=== PATIENT | female | born 1945 | race Caucasian/White ===

== ENCOUNTER → 2017-11-23 10:15 | Outpatient (CLI) | payer MEDICARE ==
[2015-11-02 12:38] VITALS: BMI 35.4
[~2017-11-23 10:15] MED LIST: ANTIVERT25 MG PO; ASPIRIN EC81 M1 PO; ASPIRIN325 MG PO; ATIVAN0.5 MG PO; ATIVAN1 MG PO; BOUDREAUXS113 GM TP; BUMETANIDE0.5 MG; BUMEX 1 MG TAB1 MG PO; CORDARONE200 MG PO; CYMBALTA20 MG PO; CYMBALTA30 MG PO; CYMBALTA60 MG PO; GLIPIZIDE10 MG PO; GLUCOPHAGE1000 MG PO; GLUCOPHAGE500 MG PO; HUMALOG 30100 UNITS/ SC; HYDROCHLOROTH12.5 M1; HYDROCODON-ACE1 EAC7 PO; JANUMET 50-5001 TAB PO; JANUMET XR 50-1 EAC1 PO; LANTUS SOL100 UNIT/1 SQ; LEVAQUIN500 MG PO; LEVOTHROID75 MCG PO; LISINOPRIL10 MG PO; LOPRESSOR25 MG PO; NEURONTIN 300300 MG PO; NORCO 10/325 TA1 TA1 PO; NORCO 5/325 TAB1 TA1 PO; NOVOLOG MIX 70/10 ML; NYSTATIN ORAL SU5 ML PO; PERCOCET 10/3251 TA1 PO; PRAVACHOL20 MG PO; RESTORIL22.5 MG PO; SYNTHROID137 MCG PO; TIROSINT13 MCG; TOPROL XL25 MG PO; TRAZODONE HCL150 MG PO; ZIAC 5/6.25 MG1 TAB PO
== END | disposition home or self-care (01) ==
LOC: D.MRI 10:15
DX: M54.16 Radiculopathy, lumbar region (principal)

== ENCOUNTER 2018-01-01 14:14 | Emergency (ER) | payer MEDICARE ==
[2015-11-02 12:38] VITALS: BMI 35.4
== END 2018-01-01 18:13 | disposition home or self-care (01) ==
LOC: D.ER 14:14
DX: S70.02XA Contusion of left hip, initial encounter (principal); W19.XXXA Unspecified fall, initial encounter; Y93.89 Activity, other specified; Y92.019 Unspecified place in single-family (private) house as the place of occurrence of the external cause; M25.552 Pain in left hip

== ENCOUNTER 2018-04-04 22:50 | Emergency (ER) | payer MEDICARE ==
[2015-11-02 12:38] VITALS: BMI 35.4
[2018-04-04 23:24] LABS: HEMATOCRIT 41.5 % (36.0-48.0); HEMOGLOBIN 14.3 g/dL (12-16); LYMPHOCYTES 27.3 % (15-50); MCH 32.5 pg (26.0-34.0); MCHC 34.5 g/dL (31.0-37.0); MCV 94.3 fL (80.0-100.0); MEAN PLATELET VOLUME 9.1 fL (7.4-10.4); PLATELET COUNT 178 10x3/uL (130-400); RDW 13.3 % (11.5-14.5); WBC 9.9 10x3/uL (4.8-10.8)
[2018-04-04 23:37] LABS: ALKALINE PHOSPHATASE 70 U/L (46-116); ALT (SGPT) 28 U/L (10-68); BILIRUBIN - TOTAL 0.75 mg/dL (0.2-1.3); CALC OSMOLALITY 286 mosm/kg (275-300); CARBON DIOXIDE 28.6 mmol/L (21.0-32.0); CHLORIDE - SERUM 102 mmol/L (98-107); POTASSIUM - SERUM 3.5 mmol/L (3.5-5.1); PROTEIN - SERUM 6.8 g/dL (6.4-8.2); SODIUM 140 mmol/L (136-145); UREA NITROGEN 18 mg/dL (7-18); eGFR NON AFRICAN AMERICAN 58 mL/min (90-120)
[2018-04-04 23:40] LABS: GLUCOSE 211 mg/dL (74-106)
[2018-04-04 23:41] LABS: KETONE - SERUM SMALL mg/dL (NEGATIVE)
[2018-04-05 01:05] LABS: APPEARANCE HAZY (CLEAR); BILIRUBIN NEGATIVE (NEGATIVE); COLOR YELLOW (YELLOW); GLUCOSE NEGATIVE (NEGATIVE); KETONE NEGATIVE (NEGATIVE); NITRITE NEGATIVE (NEGATIVE); PROTEIN NEGATIVE (NEGATIVE); SPECIFIC GRAVITY 1.015 (1.005-1.020)
[2018-04-05 01:07] LABS: BACTERIA MODERATE /hpf (NONE SEEN); EPITHELIAL CELLS 0-5 /hpf (0-5); RED CELLS - URINE 0-5 /hpf (0-5); WHITE CELLS - URINE 0-5 /hpf (0-5)
== END 2018-04-05 01:39 | disposition home or self-care (01) ==
LOC: D.ER 22:50
PROVIDERS: Family Medicine
DX: E11.65 Type 2 diabetes mellitus with hyperglycemia (principal); N39.0 Urinary tract infection, site not specified

== ENCOUNTER → 2018-04-27 06:27 | Outpatient (CLI) | payer MEDICARE ==
[2015-11-02 12:38] VITALS: BMI 35.4
[~2018-04-27 06:27] MED LIST changes: +BUTALB-APAP-CA1 EACH PO; +FLORAJEN3 CAPS460 MG PO; +HYDROCODONE-APA1 TAB PO; +LEVAQUIN750 MG PO; +NYSTATIN15 GM
== END | disposition home or self-care (01) ==
LOC: D.MAMMO 03-13 15:00
DX: Z12.31 Encounter for screening mammogram for malignant neoplasm of breast (principal)

== ENCOUNTER 2018-05-03 09:42 | Observation (INO) | payer MEDICARE ==
[~2018-05-03] VITALS: Ht 160 cm; Wt 88.0 kg
[~2018-05-03 09:42] MED LIST changes: -BUTALB-APAP-CA1 EACH PO; -FLORAJEN3 CAPS460 MG PO; -HYDROCODONE-APA1 TAB PO; -LEVAQUIN750 MG PO; -NYSTATIN15 GM
[2018-05-03 10:15] LABS: BASOPHILS 0.4 % (0-2); HEMATOCRIT 47.2 % (36.0-48.0); HEMOGLOBIN 16.1 g/dL (12-16); IMMATURE GRANULOCYTES 0.2 % (0-5); LYMPHOCYTES 21.7 % (15-50); MCH 33.3 pg (26.0-34.0); MCHC 34.1 g/dL (31.0-37.0); MCV 97.5 fL (80.0-100.0); MEAN PLATELET VOLUME 10.5 fL (7.4-10.4); NEUTROPHILS 67.7 % (40-80); PLATELET COUNT 186 10x3/uL (130-400); RBC 4.84 10x6/uL (4.00-5.40); RDW 13.1 % (11.5-14.5); WBC 9.2 10x3/uL (4.8-10.8)
[2018-05-03 10:37] LABS: ALBUMIN 3.2 g/dL (3.4-5.0); ALKALINE PHOSPHATASE 85 U/L (46-116); ALT (SGPT) 27 U/L (10-68); CALC OSMOLALITY 286 mosm/kg (275-300); CALCIUM 9.9 mg/dL (8.5-10.1); CARBON DIOXIDE 28.9 mmol/L (21.0-32.0); CHLORIDE - SERUM 99 mmol/L (98-107); POTASSIUM - SERUM 4.3 mmol/L (3.5-5.1); PROTEIN - SERUM 7.8 g/dL (6.4-8.2); SODIUM 137 mmol/L (136-145); UREA NITROGEN 18 mg/dL (7-18); eGFR NON AFRICAN AMERICAN 58 mL/min (90-120)
[2018-05-03 10:42] LABS: GLUCOSE 289 mg/dL (74-106)
[2018-05-03 10:51] LABS: CKMB 1.3 U/L (0.0-3.6); CREATINE KINASE 57 UL (21-215); TROPONIN-I < 0.017 ng/mL (0.000-0.060)
[2018-05-03 11:30] LABS: APPEARANCE CLEAR (CLEAR); COLOR DK YELLOW (YELLOW)
[2018-05-03 11:31] LABS: BACTERIA FEW /hpf (NONE SEEN); BILIRUBIN NEGATIVE (NEGATIVE); EPITHELIAL CELLS 0-5 /hpf (0-5); GLUCOSE 100 mg/dL (NEGATIVE); GRANULAR CAST RARE /lpf (NONE SEEN); HYALINE CAST OCC /lpf (NONE SEEN); KETONE MODERATE mg/dL (NEGATIVE); MUCUS <1+ /lpf (NONE SEEN); NITRITE NEGATIVE (NEGATIVE); PROTEIN TRACE mg/dL (NEGATIVE); RED CELLS - URINE 0-5 /hpf (0-5); UROBILINOGEN NORMAL (NORMAL); WHITE CELLS - URINE RARE /hpf (0-5)
[2018-05-03] MEDS ORDERED: NYSTATIN15 GM (16:43)
[2018-05-03 16:51] VITALS: BP 143/77; Ht 160 cm; Wt 88.0 kg
[2018-05-03] MEDS ORDERED: HYDROCODONE-APA1 TAB PO (17:10)
[2018-05-03 17:27] VITALS: BP 143/77
[2018-05-03 20:38] VITALS: BP 145/75
[2018-05-04 00:36] VITALS: BP 103/44
[2018-05-04 05:31] VITALS: BP 116/61
[2018-05-04 07:00] VITALS: BP 118/70
[2018-05-04 12:31] VITALS: BP 90/57
[2018-05-04 13:23] LABS: BASOPHILS 0.4 % (0-2); EOSINOPHILS 1.1 % (0-7); HEMATOCRIT 44.2 % (36.0-48.0); HEMOGLOBIN 15.3 g/dL (12-16); IMMATURE GRANULOCYTES 0.3 % (0-5); MCH 33.6 pg (26.0-34.0); MCHC 34.6 g/dL (31.0-37.0); MCV 97.1 fL (80.0-100.0); MEAN PLATELET VOLUME 10.2 fL (7.4-10.4); MONOCYTES 10.9 % (2-11); NEUTROPHILS 58.3 % (40-80); PLATELET COUNT 198 10x3/uL (130-400); RBC 4.55 10x6/uL (4.00-5.40); RDW 13.4 % (11.5-14.5)
[2018-05-04 13:33] LABS: ANION GAP 15.6 mmol/L (8-16); CALCIUM 8.9 mg/dL (8.5-10.1); CARBON DIOXIDE 25.6 mmol/L (21.0-32.0); CREATININE - SERUM 1.4 mg/dL (0.6-1.3); POTASSIUM - SERUM 4.2 mmol/L (3.5-5.1)
[2018-05-04 20:07] VITALS: BP 103/54
[2018-05-05 00:34] VITALS: BP 116/66
[2018-05-05 05:19] VITALS: BP 150/71
[2018-05-05 05:55] LABS: BASOPHILS 0.6 % (0-2); EOSINOPHILS 2.4 % (0-7); HEMATOCRIT 43.4 % (36.0-48.0); HEMOGLOBIN 14.8 g/dL (12-16); IMMATURE GRANULOCYTES 0.3 % (0-5); LYMPHOCYTES 34.8 % (15-50); MCH 33.2 pg (26.0-34.0); MCHC 34.1 g/dL (31.0-37.0); MCV 97.3 fL (80.0-100.0); MEAN PLATELET VOLUME 10.5 fL (7.4-10.4); MONOCYTES 12.1 % (2-11); NEUTROPHILS 49.8 % (40-80); PLATELET COUNT 159 10x3/uL (130-400); RBC 4.46 10x6/uL (4.00-5.40); RDW 13.2 % (11.5-14.5); WBC 10.9 10x3/uL (4.8-10.8)
[2018-05-05 06:13] LABS: ANION GAP 12.2 mmol/L (8-16); CALCIUM 9.1 mg/dL (8.5-10.1); CARBON DIOXIDE 28.5 mmol/L (21.0-32.0); POTASSIUM - SERUM 3.7 mmol/L (3.5-5.1)
[2018-05-05 08:18] VITALS: BP 106/47
[2018-05-05 12:01] VITALS: BP 124/61
== END 2018-05-05 15:36 | disposition home or self-care (01) ==
LOC: D.ER 09:42 → OBSVTIME 13:59 → D.M2 13:59 → D.EDHOLD 13:59 → D.M2 15:06
PROVIDERS: Emergency Medicine; Family Medicine
DX: N39.0 Urinary tract infection, site not specified (principal); E11.9 Type 2 diabetes mellitus without complications; I10 Essential (primary) hypertension; I48.91 Unspecified atrial fibrillation; I25.2 Old myocardial infarction; F32.9 Major depressive disorder, single episode, unspecified; F41.9 Anxiety disorder, unspecified; G47.33 Obstructive sleep apnea (adult) (pediatric); Z86.73 Personal history of transient ischemic attack (TIA), and cerebral infarction without residual deficits

== ENCOUNTER 2018-06-10 22:24 | Inpatient (IN) | payer MEDICARE ==
[~2018-06-10] VITALS: Ht 160 cm; Wt 94.4 kg
[~2018-06-10 22:24] MED LIST changes: +HYDROCODONE-APA1 TAB PO; +NYSTATIN15 GM
[2018-06-10 22:48] LABS: BASOPHILS 0.2 % (0-2); EOSINOPHILS 0.8 % (0-7); HEMATOCRIT 40.9 % (36.0-48.0); HEMOGLOBIN 13.9 g/dL (12-16); IMMATURE GRANULOCYTES 0.2 % (0-5); MCH 33.6 pg (26.0-34.0); MCV 98.8 fL (80.0-100.0); MONOCYTES 0.6 % (2-11); NEUTROPHILS 83.2 % (40-80); PLATELET COUNT 130 10x3/uL (130-400); RBC 4.14 10x6/uL (4.00-5.40); RDW 12.6 % (11.5-14.5); WBC 4.8 10x3/uL (4.8-10.8)
[2018-06-10 22:58] LABS: ALBUMIN 2.9 g/dL (3.4-5.0); ANION GAP 14.8 mmol/L (8-16); BILIRUBIN - TOTAL 0.5 mg/dL (0.2-1.3); CARBON DIOXIDE 30.1 mmol/L (21.0-32.0); CREATININE - SERUM 1.1 mg/dL (0.6-1.3); POTASSIUM - SERUM 3.9 mmol/L (3.5-5.1); PROTEIN - SERUM 7.4 g/dL (6.4-8.2)
[2018-06-10 23:37] LABS: APPEARANCE HAZY (CLEAR); BILIRUBIN NEGATIVE (NEGATIVE); COLOR YELLOW (YELLOW); GLUCOSE 500 mg/dL (NEGATIVE); KETONE NEGATIVE (NEGATIVE); NITRITE POSITIVE (NEGATIVE); PH 5.5 (5.0-6.0); PROTEIN 1+ mg/dL (NEGATIVE); SPECIFIC GRAVITY 1.015 (1.005-1.020); UROBILINOGEN NORMAL (NORMAL)
[2018-06-10 23:40] LABS: EPITHELIAL CELLS 0-5 /hpf (0-5); WHITE CELLS - URINE 25-50 /hpf (0-5)
[2018-06-10 23:41] LABS: BACTERIA MANY /hpf (NONE SEEN); HYALINE CAST RARE /lpf (NONE SEEN)
[2018-06-10 23:57] VITALS: BP 115/52
[2018-06-11 01:05] VITALS: BP 116/55
[2018-06-11 05:15] VITALS: BP 106/69
[2018-06-11 08:42] VITALS: BP 103/54
[2018-06-11 13:54] VITALS: Ht 160 cm; Wt 94.4 kg
[2018-06-11 16:52] VITALS: BP 115/54
[2018-06-11 20:48] VITALS: BP 102/53
[2018-06-12 06:57] VITALS: BP 151/71
[2018-06-12 09:11] LABS: BASOPHILS 0.2 % (0-2); EOSINOPHILS 1.2 % (0-7); HEMATOCRIT 34.8 % (36.0-48.0); HEMOGLOBIN 11.8 g/dL (12-16); IMMATURE GRANULOCYTES 0.3 % (0-5); LYMPHOCYTES 8.4 % (15-50); MCH 33.1 pg (26.0-34.0); MCHC 33.9 g/dL (31.0-37.0); MCV 97.5 fL (80.0-100.0); MEAN PLATELET VOLUME 10.3 fL (7.4-10.4); MONOCYTES 8.9 % (2-11); PLATELET COUNT 101 10x3/uL (130-400); RBC 3.57 10x6/uL (4.00-5.40); RDW 12.4 % (11.5-14.5); WBC 12.2 10x3/uL (4.8-10.8)
[2018-06-12 09:18] VITALS: BP 159/81
[2018-06-12 09:29] LABS: ANION GAP 7.8 mmol/L (8-16); BILIRUBIN - TOTAL 0.36 mg/dL (0.2-1.3); CALCIUM 8.5 mg/dL (8.5-10.1); CARBON DIOXIDE 31.2 mmol/L (21.0-32.0); CREATININE - SERUM 0.9 mg/dL (0.6-1.3)
[2018-06-12 09:31] LABS: ALBUMIN 2.1 g/dL (3.4-5.0)
[2018-06-12 12:39] VITALS: BP 159/81
[2018-06-12 15:05] LABS: APPEARANCE - CSF CLEAR; RBC - CSF 0 cmm (0-0)
[2018-06-12 15:06] LABS: GLUCOSE - CSF 112 MG/DL (40-75); PROTEIN - CSF 41 MG/DL (12-60)
[2018-06-12 16:34] VITALS: BP 164/81
[2018-06-12 21:08] VITALS: BP 133/72
[2018-06-13 01:40] VITALS: BP 126/68
[2018-06-13 05:40] VITALS: BP 159/86
[2018-06-13 07:08] LABS: BASOPHILS 0.2 % (0-2); EOSINOPHILS 1.3 % (0-7); HEMATOCRIT 35.9 % (36.0-48.0); HEMOGLOBIN 12.1 g/dL (12-16); IMMATURE GRANULOCYTES 0.6 % (0-5); LYMPHOCYTES 11.6 % (15-50); MCH 32.8 pg (26.0-34.0); MCHC 33.7 g/dL (31.0-37.0); MCV 97.3 fL (80.0-100.0); MEAN PLATELET VOLUME 10.6 fL (7.4-10.4); MONOCYTES 9.2 % (2-11); NEUTROPHILS 77.1 % (40-80); PLATELET COUNT 119 10x3/uL (130-400); RBC 3.69 10x6/uL (4.00-5.40); RDW 12.5 % (11.5-14.5); WBC 10.8 10x3/uL (4.8-10.8)
[2018-06-13 07:50] LABS: ALBUMIN 2.1 g/dL (3.4-5.0); ALKALINE PHOSPHATASE 98 U/L (46-116); ALT (SGPT) 20 U/L (10-68); BILIRUBIN - TOTAL 0.28 mg/dL (0.2-1.3); CALC OSMOLALITY 277 mosm/kg (275-300); CALCIUM 8.6 mg/dL (8.5-10.1); CARBON DIOXIDE 29.8 mmol/L (21.0-32.0); CHLORIDE - SERUM 101 mmol/L (98-107); CREATININE - SERUM 0.7 mg/dL (0.6-1.3); GLUCOSE 204 mg/dL (74-106); POTASSIUM - SERUM 4.4 mmol/L (3.5-5.1); PROTEIN - SERUM 6.3 g/dL (6.4-8.2); SODIUM 136 mmol/L (136-145); UREA NITROGEN 13 mg/dL (7-18); eGFR NON AFRICAN AMERICAN 87 mL/min (90-120)
[2018-06-13 09:38] VITALS: BP 133/79
[2018-06-13 12:00] VITALS: BP 150/78
[2018-06-13 17:35] VITALS: BP 137/77
[2018-06-13 20:36] VITALS: BP 137/73
[2018-06-14 00:51] VITALS: BP 126/73
[2018-06-14 06:03] LABS: BASOPHILS 0.3 % (0-2); EOSINOPHILS 2.2 % (0-7); HEMATOCRIT 35.3 % (36.0-48.0); HEMOGLOBIN 11.9 g/dL (12-16); IMMATURE GRANULOCYTES 0.8 % (0-5); LYMPHOCYTES 19.6 % (15-50); MCH 32.8 pg (26.0-34.0); MCHC 33.7 g/dL (31.0-37.0); MCV 97.2 fL (80.0-100.0); MEAN PLATELET VOLUME 10.5 fL (7.4-10.4); MONOCYTES 13.6 % (2-11); NEUTROPHILS 63.5 % (40-80); PLATELET COUNT 123 10x3/uL (130-400); RBC 3.63 10x6/uL (4.00-5.40); RDW 12.6 % (11.5-14.5); WBC 9.1 10x3/uL (4.8-10.8)
[2018-06-14 06:20] VITALS: BP 137/77
[2018-06-14 06:25] LABS: BILIRUBIN - TOTAL 0.18 mg/dL (0.2-1.3); CALCIUM 8.4 mg/dL (8.5-10.1); CARBON DIOXIDE 29.9 mmol/L (21.0-32.0); PROTEIN - SERUM 5.9 g/dL (6.4-8.2)
[2018-06-14 06:26] LABS: ANION GAP 9.7 mmol/L (8-16); CREATININE - SERUM 0.9 mg/dL (0.6-1.3); POTASSIUM - SERUM 3.6 mmol/L (3.5-5.1)
[2018-06-14 20:08] VITALS: BP 139/75
[2018-06-14 23:15] VITALS: BP 170/85
[2018-06-15 04:33] VITALS: BP 157/71
[2018-06-15 06:24] LABS: HEMATOCRIT 35.2 % (36.0-48.0); MCH 32.6 pg (26.0-34.0); MCHC 34.1 g/dL (31.0-37.0); MCV 95.7 fL (80.0-100.0); MEAN PLATELET VOLUME 9.6 fL (7.4-10.4); NEUTROPHILS 60.9 % (40-80); PLATELET COUNT 130 10x3/uL (130-400); RBC 3.68 10x6/uL (4.00-5.40); RDW 12.4 % (11.5-14.5); WBC 8.6 10x3/uL (4.8-10.8)
[2018-06-15 06:34] LABS: ALBUMIN 2.1 g/dL (3.4-5.0); ALKALINE PHOSPHATASE 80 U/L (46-116); ALT (SGPT) 15 U/L (10-68); BILIRUBIN - TOTAL 0.22 mg/dL (0.2-1.3); CALC OSMOLALITY 283 mosm/kg (275-300); CALCIUM 8.2 mg/dL (8.5-10.1); CARBON DIOXIDE 33.8 mmol/L (21.0-32.0); CHLORIDE - SERUM 103 mmol/L (98-107); CREATININE - SERUM 0.8 mg/dL (0.6-1.3); GLUCOSE 145 mg/dL (74-106); POTASSIUM - SERUM 3.2 mmol/L (3.5-5.1); PROTEIN - SERUM 5.9 g/dL (6.4-8.2); SODIUM 141 mmol/L (136-145); UREA NITROGEN 12 mg/dL (7-18); eGFR NON AFRICAN AMERICAN 75 mL/min (90-120)
[2018-06-15 19:44] VITALS: BP 110/48
[2018-06-16] VITALS: BP 124/57
[2018-06-16 04:00] VITALS: BP 147/72
[2018-06-16 05:44] LABS: BASOPHILS 0.7 % (0-2); EOSINOPHILS 3.5 % (0-7); HEMATOCRIT 35.3 % (36.0-48.0); IMMATURE GRANULOCYTES 3.7 % (0-5); LYMPHOCYTES 29.1 % (15-50); MCH 33.3 pg (26.0-34.0); MEAN PLATELET VOLUME 9.9 fL (7.4-10.4); MONOCYTES 15.2 % (2-11); NEUTROPHILS 47.8 % (40-80); PLATELET COUNT 149 10x3/uL (130-400); RDW 12.8 % (11.5-14.5); WBC 8.9 10x3/uL (4.8-10.8)
[2018-06-16 05:51] LABS: MCV 98.1 fL (80.0-100.0)
[2018-06-16 06:12] LABS: ANION GAP 4.1 mmol/L (8-16); BILIRUBIN - TOTAL 0.22 mg/dL (0.2-1.3); CALCIUM 8.3 mg/dL (8.5-10.1); CREATININE - SERUM 0.9 mg/dL (0.6-1.3); POTASSIUM - SERUM 4.1 mmol/L (3.5-5.1)
[2018-06-16 08:57] VITALS: BP 121/64
[2018-06-16] MEDS ORDERED: LEVAQUIN750 MG PO ×2 (11:45→13:20)
[2018-06-16] MEDS ORDERED: FLORAJEN3 CAPS460 MG PO (11:47)
[2018-06-16 12:32] VITALS: BP 120/57
[2018-06-16] MEDS ORDERED: BUTALB-APAP-CA1 EACH PO (13:20)
== END 2018-06-16 13:40 | disposition home or self-care (01) | DRG 872 ==
LOC: D.ER 22:24 → D.M2 23:59
PROVIDERS: Emergency Medicine; Family Medicine; Internal Medicine Nephrology; Student in an Organized Health Care Education/Training Program
PROC: 009U3ZZ Drainage of Spinal Canal, Percutaneous Approach (ICD-10-PCS; principal; 2018-06-12)
DX: A41.51 Sepsis due to Escherichia coli [E. coli] (principal); N39.0 Urinary tract infection, site not specified; I48.91 Unspecified atrial fibrillation; I10 Essential (primary) hypertension; E11.621 Type 2 diabetes mellitus with foot ulcer; I25.10 Atherosclerotic heart disease of native coronary artery without angina pectoris; Z95.1 Presence of aortocoronary bypass graft; E11.65 Type 2 diabetes mellitus with hyperglycemia; G47.33 Obstructive sleep apnea (adult) (pediatric); R51 Headache; K59.00 Constipation, unspecified